=== PATIENT | male | born 1990 | race Caucasian/White ===

== ENCOUNTER 2018-05-26 19:56 | Emergency (ER) | payer OTHER ==
[~2018-05-26] VITALS: Ht 170.2 cm; Wt 88.1 kg
[2018-05-26 20:05] VITALS: Ht 170.2 cm; Wt 88.1 kg
[2018-05-26 21:49] VITALS: BP 140/83
== END 2018-05-26 21:49 | disposition home or self-care (01) ==
LOC: ED 19:56
DX: H10.33 Unspecified acute conjunctivitis, bilateral (principal)